=== PATIENT | male | born 1970 | race Two or more races ===

== ENCOUNTER 2018-12-05 19:01 | Emergency (ER) | payer SELFPAY | END 2018-12-05 19:50 | disposition home or self-care (01) | LOC: JERFT 19:01 ==

== ENCOUNTER 2018-12-17 21:04 | Emergency (ER) | payer SELFPAY ==
[2018-12-17 21:09] VITALS: BP 160/90; PULSE 65; TEMP 98.6; BMI 30.9
--- NOTE | 2018-12-17 21:12 | PDOC ---
Rapid Medical Evaluation Chief Complaint: Pain Time Seen by Provider: 12/17/18 21:09 Medical Evaluation: Allergies Allergy/AdvReac Type Severity Reaction Status Date / Time No Known Allergies Allergy Verified 12/05/18 19:37 Vital Signs Temp Pulse Resp BP Pulse Ox 98.6 F 65 20 160/90 99 12/17/18 21:07 12/17/18 21:07 12/17/18 21:07 12/17/18 21:07 12/17/18 21:07 12/17/18 21:11 Pt c/o: lt shoulder pain x 3 months, worse with movement, no med f/u Pt on brief exam: no reproducible tenderness, from but difficulty noted with lat raise Pt ordered for: none Pt to proceed to the ED Discharge Disposition - Diagnosis Shoulder pain - Referrals - Patient Instructions - Post Discharge Activity
[2018-12-17] MEDS ORDERED: KETOROLAC TROMETHAMINE 60 MG/2 ML VIAL IM ONE (21:32)
--- NOTE | 2018-12-17 21:35 | PDOC ---
History of Present Illness - General Chief Complaint: Pain Stated Complaint: LEFT SHOUDER PAIN Time Seen by Provider: 12/17/18 21:09 - History of Present Illness Initial Comments: 12/17/18 21:32 48-year-old male with left-sided neck and arm pain for 2 months presents for evaluation to the ED. No loss of bowel or bladder function systemic symptoms or saddle paresthesias. Past History - Past Medical History Allergies/Adverse Reactions: Allergies Allergy/AdvReac Type Severity Reaction Status Date / Time No Known Allergies Allergy Verified 12/05/18 19:37 Home Medications: Ambulatory Orders Cyclobenzaprine HCl [Flexeril 10 mg] 10 mg PO HS PRN #10 tablet 12/17/18 Methylprednisolone [Medrol Dose Duran] 4 mg PO ASDIR #21 tablet 12/17/18 COPD: No - Immunization History Immunization Up to Date: Yes - Suicide/Smoking/Psychosocial Hx Smoking History: Never smoked Have you smoked in the past 12 months: No Information on smoking cessation initiated: No Hx Alcohol Use: No Drug/Substance Use Hx: No Review of Systems - Review of Systems Constitutional: No: Fever Musculoskeletal: Yes: Neck Pain *Physical Exam - Vital Signs Last Vital Signs Temp Pulse Resp BP Pulse Ox 98.6 F 65 20 160/90 99 12/17/18 21:07 12/17/18 21:07 12/17/18 21:07 12/17/18 21:07 12/17/18 21:07 - Physical Exam Comments: 12/17/18 21:33 Cervical spine skin color and temperature are normal range of motion is slightly limited. There is no midline cervical tenderness mild paracervical musculature spasm and tenderness. 5 out of 5 strength bilateral upper extremities without gross sensory motor deficits. Positive Spurling maneuver bilaterally producing left upper extremity radicular symptoms. Neurovascularly intact free of any gross sensory motor deficits. Medical Decision Making - Medical Decision Making 12/17/18 21:33 Toradol for pain in the ED, ventral Dosepak and Flexeril at home follow-up with orthospine *DC/Admit/Observation/Transfer Diagnosis at time of Disposition: Shoulder pain, Cervical radiculopathy - Discharge Dispostion Disposition: HOME Condition at time of disposition: Stable Decision to Admit order: No - Prescriptions Prescriptions: Cyclobenzaprine HCl [Flexeril 10 mg] 10 mg PO HS PRN #10 tablet PRN Reason: Muscle Spasms Methylprednisolone [Medrol Dose Duran] 4 mg PO ASDIR #21 tablet - Referrals Referrals: Jose Francisco Montemayor MD [Staff Physician] - - Patient Instructions Printed Discharge Instructions: DI for Cervical Radiculopathy Additional Instructions: Do not take any Advil Motrin ibuprofen or Aleve. He may take Tylenol as directed for pain. Start the steroid pack tomorrow and use that as directed. The muscle relaxers one tablet before bedtime and will make you sleepy. Return to the emergency room for worsening symptoms. Follow-up with orthopedic spine surgery in 1-2 days without fail for further evaluation and treatment options. - Post Discharge Activity
[2018-12-17] MEDS ORDERED: KETOROLAC TROMETHAMINE 60 MG/2 ML VIAL ONE (21:41)
== END 2018-12-17 21:45 | disposition home or self-care (01) ==
LOC: JERFT 21:04
PROC: 3E0233Z Introduction of Anti-inflammatory into Muscle, Percutaneous Approach (ICD-10-PCS; principal; 2018-12-17)
DX: M54.12 Radiculopathy, cervical region (principal)
CPT/HCPCS: 99281-25

== ENCOUNTER 2021-10-08 18:11 | Emergency (ER) | payer SELFPAY ==
[2021-10-08 18:17] VITALS: BP 173/99; PULSE 87; TEMP 98.9; BMI 24.0
[2021-10-08] MEDS ORDERED: KETOROLAC TROMETHAMINE 30 MG/1 ML VIAL IM ONE (21:13)
[2021-10-08] MEDS ORDERED: KETOROLAC TROMETHAMINE 30 MG/1 ML VIAL ONE (21:30)
== END 2021-10-08 23:01 | disposition home or self-care (01) ==
LOC: JER 18:11
PROC: 3E0233Z Introduction of Anti-inflammatory into Muscle, Percutaneous Approach (ICD-10-PCS; principal; 2021-10-08)
DX: S09.93XA Unspecified injury of face, initial encounter (principal); Y04.0XXA Assault by unarmed brawl or fight, initial encounter
CPT/HCPCS: 70486-TC; 99284-25

== ENCOUNTER 2022-03-06 18:59 | Observation (INO) | payer SELFPAY ==
[2022-03-06 19:15] VITALS: BMI 30.9
[2022-03-06 21:14] LABS: BASO % 0.5 % (0-2.0); EOS % 0.9 % (0-4.5); HEMATOCRIT 38.4 % (35.4-49); HEMOGLOBIN 12.7 GM/dL (11.7-16.9); LYMPH % 27.3 % (8-40); MCH 27.7 pg (25.7-33.7); MEAN CELL VOLUME 83.9 fl (80-96); MEAN PLT VOLUME 7.5 fl (7.5-11.1); MONO % 8.5 % (3.8-10.2); NEUT % 62.8 % (42.8-82.8); PLATELET COUNT 281 10^3/uL (134-434); RBC 4.57 M/mm3 (4.00-5.60); RDW 13.9 % (11.9-15.9); WHITE BLOOD COUNT 8.1 K/mm3 (4.0-10.0)
[2022-03-06 21:21] LABS: INR 1.03 (0.83-1.09); PROTHROMBIN TIME (PATIENT) 11.9 SEC (9.7-13.0)
[2022-03-06 21:24] LABS: ACTIVATED PTT 33.6 SECONDS (25.2-36.5)
[2022-03-06 21:26] LABS: ALBUMIN 3.9 g/dl (3.4-5.0); BLOOD UREA NITROGEN 20.8 mg/dL (7-18); CALCIUM 9.5 mg/dL (8.5-10.1)
[2022-03-06 21:30] LABS: TOT PROT 6.8 g/dl (6.4-8.2)
[2022-03-06 21:31] LABS: BILIRUBIN,TOTAL 0.3 mg/dL (0.2-1)
[2022-03-06 21:49] LABS: PH,URINE 7.5 (5.0-8.0); URINE APPEARANCE CLEAR; URINE BILIRUBIN NEGATIVE (NEGATIVE); URINE COLOR YELLOW; URINE GLUCOSE (UA) NEGATIVE (NEGATIVE); URINE KETONE NEGATIVE (NEGATIVE); URINE LEUK ESTERASE NEGATIVE (NEGATIVE); URINE NITRITE NEGATIVE (NEGATIVE); URINE PROTEIN TRACE (NEGATIVE)
[2022-03-07] MEDS ORDERED: LABETALOL HCL 5 MG/1 ML (100MG/20 ML VIAL) IVPUSH ONE (01:12)
[2022-03-07] MEDS ORDERED: LABETALOL HCL 5 MG/1 ML (100MG/20 ML VIAL) ONE (01:26)
[2022-03-07] MEDS ORDERED: LISINOPRIL 20 MG TABLET PO ONE (03:08)
[2022-03-07] MEDS ORDERED: HYDROCHLOROTHIAZIDE 12.5 MG CAPSULE (FP) PO ONE (03:09)
[2022-03-07] MEDS ORDERED: ACETAMINOPHEN 1000 MG/100 ML BAG IVPB PRN (03:20)
[2022-03-07] MEDS ORDERED: HYDROCHLOROTHIAZIDE 25 MG TABLET (FP) ONE ×2 (03:26→08:57)
[2022-03-07 04:20] LABS: COCAINE, UR NEGATIVE (NEGATIVE); PHENCYCLIDINE,URINE NEGATIVE (NEGATIVE)
[2022-03-07 04:21] LABS: METHADONE, UR NEGATIVE (NEGATIVE); OPIATES, URI NEGATIVE (NEGATIVE); URINE AMPHETAMINES NEGATIVE (NEGATIVE); URINE BARBITURATES NEGATIVE (NEGATIVE); URINE BENZODIAZEPINES NEGATIVE (NEGATIVE)
[2022-03-07 06:38] LABS: BASO % 0.6 % (0-2.0); EOS % 1.4 % (0-4.5); HEMOGLOBIN 12.5 GM/dL (11.7-16.9); LYMPH % 34.7 % (8-40); MCH 26.5 pg (25.7-33.7); MCHC 32.1 g/dl (32.0-35.9); MEAN CELL VOLUME 82.7 fl (80-96); MEAN PLT VOLUME 7.8 fl (7.5-11.1); MONO % 10.2 % (3.8-10.2); NEUT % 53.1 % (42.8-82.8); PLATELET COUNT 274 10^3/uL (134-434); RBC 4.72 M/mm3 (4.00-5.60); RDW 14.1 % (11.9-15.9); WHITE BLOOD COUNT 6.5 K/mm3 (4.0-10.0)
[2022-03-07 06:58] LABS: ALBUMIN 3.4 g/dl (3.4-5.0); BLOOD UREA NITROGEN 17.7 mg/dL (7-18); CALCIUM 8.7 mg/dL (8.5-10.1)
[2022-03-07 07:01] LABS: PHOSPHOROUS 3.8 mg/dL (2.5-4.9)
[2022-03-07 07:02] LABS: CREATININE 0.8 mg/dL (0.55-1.3)
[2022-03-07 07:03] LABS: BILIRUBIN,TOTAL 0.3 mg/dL (0.2-1); CHOLESTEROL 179 mg/dL (50-200); TOT PROT 6.6 g/dl (6.4-8.2)
[2022-03-07 07:04] LABS: TRIGLYCERIDES 127 mg/dL (0-150)
[2022-03-07 07:05] LABS: LDL CHOLESTEROL (ONLY SJRH) 82 mg/dL (5-100)
[2022-03-07 07:06] LABS: HDL CHOLESTEROL 77 mg/dL (40-60)
[2022-03-07] MEDS ORDERED: LISINOPRIL 20 MG TABLET ONE (08:57)
[2022-03-07] MEDS ORDERED: ENOXAPARIN NA (PORCINE) 40 MG/0.4 ML DISP.SYRIN SQ ONE (08:57)
[2022-03-07] MEDS ORDERED: HYDROCHLOROTHIAZIDE 12.5 MG CAPSULE (FP) PO SCH (10:00)
[2022-03-07] MEDS ORDERED: LISINOPRIL 20 MG TABLET PO SCH (10:00)
[2022-03-07] MEDS ORDERED: ENOXAPARIN NA (PORCINE) 40 MG/0.4 ML DISP.SYRIN SQ SCH (10:00)
[2022-03-07 10:53] VITALS: TEMP 98.3
[2022-03-07] MEDS ORDERED: amLODIPine BESYLATE 10 MG TABLET (FP) PO SCH (11:30)
[2022-03-07] MEDS ORDERED: amLODIPine BESYLATE 10 MG TABLET (FP) ONE (11:37)
[2022-03-07 14:52] VITALS: BP 152/97; PULSE 63; RESP 18
[2022-03-07] MEDS ORDERED: TAMSULOSIN HCL 0.4 MG CAP PO SCH (15:21)
[2022-03-07] MEDS ORDERED: TAMSULOSIN HCL 0.4 MG CAP ONE (17:16)
== END 2022-03-07 22:28 | disposition left against medical advice (07) ==
LOC: JER 18:59 → JERBED 23:08
PROVIDERS: ADMIT Internal Medicine; ATTEND Internal Medicine
PROC: 3E023GC Introduction of Other Therapeutic Substance into Muscle, Percutaneous Approach (ICD-10-PCS; principal; 2022-03-06)
PROC: 3E033GC Introduction of Other Therapeutic Substance into Peripheral Vein, Percutaneous Approach (ICD-10-PCS; 2022-03-06)
DX: I16.0 Hypertensive urgency (principal); M54.50 Low back pain, unspecified; N53.19 Other ejaculatory dysfunction; R94.31 Abnormal electrocardiogram [ECG] [EKG]; R10.13 Epigastric pain; E66.9 Obesity, unspecified; Z68.30 Body mass index [BMI] 30.0-30.9, adult; R31.9 Hematuria, unspecified; Z29.8 Encounter for other specified prophylactic measures
CPT/HCPCS: 36415; 71046-TC-FY; 74176-TC; 76870-TC; 80053; 80061; 80307; 81003; 83036; 83690; 83735; 84100; 84153; 84443; 84484; 85025; 85610; 85730; 87086; 87491; 87591; 93005; 93010; 93306-TC; 96372; 96374; 96375; 99285-25; C9803-CS; G0378; U0003; U0005